=== PATIENT | male | born 1970 | race Caucasian/White ===

== ENCOUNTER 2016-12-29 11:38 | Emergency (ER) | payer BC ==
[2016-12-29] MEDS ORDERED: Ketorolac 60 MG/2 ML SDV IM ONE (12:05)
--- NOTE | 2016-12-29 12:18 | EDM.PDOC ---
ED HPI GENERAL MEDICAL PROBLEM - General Chief Complaint: Back Pain or Injury Stated Complaint: BACK PAIN Time Seen by Provider: 12/29/16 11:40 Source of Information: Reports: Patient History Limitations: Reports: No Limitations - History of Present Illness INITIAL COMMENTS - FREE TEXT/NARRATIVE: Presents reporting low back pain. The patient states that he has had low back pain for a number of years. He was worked up for it back in his home in [place]. 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 He tries to just work through the pain but of late he cannot sleep at night or get comfortable due to the constant aching. He denies any radicular symptoms including electric burning pains or tingling or numbness in his buttocks and thighs legs or feet. He denies fever or bowel or bladder problems. 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 He states he is closely followed by his primary provider back in [place] as he must be seen at least every 6 months for his testosterone prescriptions. Lower Back Pain Score (Numeric/FACES): 8 - Related Data Allergies Allergy/AdvReac Type Severity Reaction Status Date / Time No Known Allergies Allergy Verified 12/29/16 11:57 Home Meds: Home Meds Carisoprodol [Soma] 350 mg PO BEDTIME PRN #14 tablet 12/29/16 [Rx] Testosterone Undecanoate [Aveed] 12/29/16 [History] predniSONE [Prednisone] 2 tab PO DAILY #10 tablet 12/29/16 [Rx] Past Medical History Musculoskeletal History: Reports: Back Pain, Chronic Oncologic (Cancer) History: Reports: Other (See Below) Other Oncologic History: testicular - Infectious Disease History Infectious Disease History: Reports: Chicken Pox - Past Surgical History Male Surgical History: Reports: Other (See Below) Other Male Surgeries/Procedures: orchectomy bilateral Social & Family History - Family History Family Medical History: Noncontributory - Tobacco Use Smoking Status *Q: Current Every Day Smoker Years of Tobacco use: 20 Packs/Tins Daily: 0.2 - Recreational Drug Use Recreational Drug Use: No ED ROS GENERAL - Review of Systems Review Of Systems: See Below ED EXAM,LOWER BACK PAIN/INJURY - Physical Exam Exam: See Below Exam Limited By: No Limitations General Appearance: Alert, No Apparent Distress Ears: Normal External Exam Nose: Normal Inspection Throat/Mouth: Normal Inspection Head: Atraumatic, Normocephalic Neck: Normal Inspection Respiratory/Chest: No Respiratory Distress, Lungs Clear, Normal Breath Sounds Cardiovascular: Normal Peripheral Pulses, Regular Rate, Rhythm, No Murmur GI/Abdominal: Soft Back Exam: Normal Inspection, Full Range of Motion. No: CVA Tenderness (L), CVA Tenderness (R), Paraspinal Tenderness, Vertebral Tenderness Extremities: Normal Inspection, Normal Range of Motion Neurological: Alert DTR - Lower Extremities: 2+: Knee (L), 3+: Knee (R) Psychiatric: Normal Affect, Normal Mood Skin Exam: Warm, Dry, Intact, Normal Color, No Rash Lymphatic: No Adenopathy Course - Vital Signs Last Recorded V/S: Last Vital Signs Temp 36.2 C 12/29/16 11:54 Pulse 91 12/29/16 11:54 Resp 18 12/29/16 11:54 BP 122/74 12/29/16 11:54 Pulse Ox 98 12/29/16 11:54 - Orders/Labs/Meds Meds: Medications Discontinued Medications Generic Name Dose Route Start Last Admin Trade Name Alba PRN Reason Stop Dose Admin Ketorolac Tromethamine 60 mg 12/29/16 12:05 12/29/16 12:15 Toradol IM 12/29/16 12:06 60 mg ONETIME ONE Administration Departure - Departure Time of Disposition: 12:45 Disposition: Home, Self-Care 01 Condition: Good Clinical Impression: Lumbar arthropathy - Discharge Information Instructions: Chronic Back Pain Referrals: PCP,None [Primary Care Provider] - Forms: ED Department Discharge Additional Instructions: 1. May take Soma or [place] before bed for low back pain and relaxation. Do NOT take these medications while working 2. Prednisone daily for the next 5 days 3. Consider massage or managed care specialist 4. Warm or cool packs, whichever feels best, 20 minutes every 3-4 hours to low back as needed 5. Please follow up with your primary provider--you have a history of cancer. Back pain may be a warning sign of recurrence.
== END 2016-12-29 13:00 | disposition home or self-care (01) ==
LOC: MW.ED 11:38
DX: M46.96 Unspecified inflammatory spondylopathy, lumbar region (principal); F17.210 Nicotine dependence, cigarettes, uncomplicated; Z79.899 Other long term (current) drug therapy
CPT/HCPCS: 96372; 99283; J1885; 99282

== ENCOUNTER 2017-09-04 15:55 | Emergency (ER) | payer SELFPAY ==
[2017-09-04] MEDS ORDERED: Sodium Chloride 0.9% 2.5 ML Syringe FLUSH PRN (16:08)
[2017-09-04] MEDS ORDERED: Sodium Chloride 0.9% 10 ML Syringe FLUSH PRN (16:08)
[2017-09-04] MEDS ORDERED: Aspirin 81 MG Tab.Chew PO ONE (16:08)
[2017-09-04] MEDS ORDERED: Nitroglycerin 0.4 MG Tab.SL ONE (16:15)
[2017-09-04] MEDS: Nitroglycerin 0.4 MG Tab.SL SL PRN ×3 (16:20→16:30)
[2017-09-04] MEDS ORDERED: Ketorolac 30 MG/ML SDV IVPUSH ONE (16:26)
--- NOTE | 2017-09-04 16:26 | EDM.PDOC ---
ED HPI GENERAL MEDICAL PROBLEM - General Chief Complaint: Chest Pain Stated Complaint: CHEST AND BACK PAIN Time Seen by Provider: 09/04/17 16:04 Source of Information: Reports: Patient History Limitations: Reports: No Limitations - History of Present Illness INITIAL COMMENTS - FREE TEXT/NARRATIVE: History of present illness: []Patient developed epigastric and sternal chest pain about 45 minutes ago patient while he will was driving to the hospital to be evaluated for back pain. Patient states his pain is 8/10 substernal, nonradiating, pressure with no other symptoms and denies any vomiting or bloody stools. He has been taking a lot of ibuprofen for his back. Patient is a testicular cancer survivor 2 to 5 years apart. Review of systems: As per history of present illness and below otherwise all systems reviewed and negative. Past medical history: As per history of present illness and as reviewed below otherwise noncontributory. Surgical history: As per history of present illness and as reviewed below otherwise noncontributory. Social history: No reported history of drug or alcohol abuse. Family history: As per history of present illness and as reviewed below otherwise noncontributory. Physical exam: General: Well developed, well nourished anxious HEENT: Atraumatic, normocephalic, pupils reactive, negative for conjunctival pallor or scleral icterus, mucous membranes moist, throat clear, neck supple, nontender, trachea midline. Lungs: Clear to auscultation, breath sounds equal bilaterally, chest nontender. Heart: S1S2, regular, negative for clicks, rubs, or JVD. Abdomen: Soft, nondistended, nontender. Negative for masses or hepatosplenomegaly. Negative for costovertebral tenderness. Positive back spasm left thoracolumbar spinal muscles Pelvis: Stable nontender. Genitourinary: Deferred. Rectal: Deferred. Extremities: Atraumatic, negative for cords or calf pain. Neurovascular unremarkable. Neuro: Awake, alert, oriented. Cranial nerves II through XII unremarkable. Cerebellum unremarkable. Motor and sensory unremarkable throughout. Exam nonfocal. Diagnostics: []EKG normal sinus rhythm 88 and without ischemic changes, CBC normal, chemistry normal, troponin, chest x-ray negative Therapeutics: []Aspirin, nitroglycerin without relief, GI cocktail alleviated symptoms Impression: []Gastritis secondary to NSAIDs Plan: []Stop NSAID use, tramadol and Flexeril follow up with primary care next available appointment. Take Prilosec twice a day for the next 2 weeks. Definitive disposition and diagnosis as appropriate pending reevaluation and review of above. - Related Data Allergies Allergy/AdvReac Type Severity Reaction Status Date / Time No Known Allergies Allergy Verified 12/29/16 11:57 Home Meds: Home Meds Carisoprodol [Soma] 350 mg PO BEDTIME PRN #14 tablet 12/29/16 [Rx] Testosterone Undecanoate [Aveed] 12/29/16 [History] predniSONE [Prednisone] 2 tab PO DAILY #10 tablet 12/29/16 [Rx] Cyclobenzaprine [Flexeril] 10 mg PO BID PRN #12 tab 09/04/17 [Rx] traMADol HCl [Tramadol HCl] 50 mg PO Q6H PRN #16 tablet 09/04/17 [Rx] Past Medical History Musculoskeletal History: Reports: Back Pain, Chronic Oncologic (Cancer) History: Reports: Other (See Below) Other Oncologic History: testicular - Infectious Disease History Infectious Disease History: Reports: Chicken Pox - Past Surgical History Male Surgical History: Reports: Other (See Below) Other Male Surgeries/Procedures: orchectomy bilateral Social & Family History - Family History Family Medical History: Noncontributory ED ROS GENERAL - Review of Systems Review Of Systems: See Below (History of present illness) ED EXAM, GENERAL - Physical Exam Exam: See Below (See history of present illness) Course - Vital Signs Last Recorded V/S: Last Vital Signs Temp Pulse 84 09/04/17 16:35 Resp 18 09/04/17 16:35 BP 103/70 09/04/17 16:35 Pulse Ox 94 L 09/04/17 16:35 - Orders/Labs/Meds Orders: Active Orders 24 hr Category Date Time Status Cardiac Monitoring [RC] . DIRECTED Care 09/04/17 16:08 Active EKG Documentation Completion [RC] STAT Care 09/04/17 16:08 Active Chest 1V Frontal [CR] Stat Exams 09/04/17 16:08 Taken UA W/MICROSCOPIC [URIN] Stat Lab 09/04/17 16:17 Ordered Sodium Chloride 0.9% [Normal Saline] 1,000 ml Med 09/04/17 17:17 Active IV .Bolus Sodium Chloride 0.9% [Normal Saline] 1,000 ml Med 09/04/17 16:30 Active IV ASDIRECTED Sodium Chloride 0.9% [Saline Flush] Med 09/04/17 16:08 Active 10 ml FLUSH ASDIRECTED PRN Sodium Chloride 0.9% [Saline Flush] Med 09/04/17 16:08 Active 2.5 ml FLUSH ASDIRECTED PRN Saline Lock Insert [OM.PC] Stat Oth 09/04/17 16:08 Ordered Medication Orders Sodium Chloride (Normal Saline) 1,000 mls @ 999 mls/hr IV ASDIRECTED ANASTACIO Sodium Chloride (Normal Saline) 1,000 mls @ 999 mls/hr IV .Bolus ONE Stop: 09/04/17 18:17 Sodium Chloride (Saline Flush) 10 ml FLUSH ASDIRECTED PRN PRN Reason: Keep Vein Open Sodium Chloride (Saline Flush) 2.5 ml FLUSH ASDIRECTED PRN PRN Reason: Keep Vein Open Labs: Laboratory Tests 09/04/17 09/04/17 Range/Units 16:10 16:10 WBC 7.08 (4.0-11.0) K/uL RBC 4.62 (4.50-5.90) M/uL Hgb 14.7 (13.0-17.0) g/dL Hct 42.8 (38.0-50.0) % MCV 92.6 (80.0-98.0) fL MCH 31.8 (27.0-32.0) pg MCHC 34.3 (31.0-37.0) g/dL RDW Std Deviation 45.9 (28.0-62.0) fl RDW Coeff of Avi 14 (11.0-15.0) % Plt Count 285 (150-400) K/uL MPV 9.30 (7.40-12.00) fL Neut % (Auto) 54.6 (48.0-80.0) % Lymph % (Auto) 35.3 (16.0-40.0) % Rich % (Auto) 7.9 (0.0-15.0) % Eos % (Auto) 1.6 (0.0-7.0) % Baso % (Auto) 0.6 (0.0-1.5) % Neut # (Auto) 3.9 (1.4-5.7) K/uL Lymph # (Auto) 2.5 H (0.6-2.4) K/uL Rich # (Auto) 0.6 (0.0-0.8) K/uL Eos # (Auto) 0.1 (0.0-0.7) K/uL Baso # (Auto) 0.0 (0.0-0.1) K/uL Nucleated RBC % 0.0 /100WBC Nucleated RBCs # 0 K/uL Sodium 143 (136-148) mmol/L Potassium 4.0 (3.5-5.1) mmol/L Chloride 105 (98-107) mmol/L Carbon Dioxide 28.2 (21.0-32.0) mmol/L BUN 16 (7.0-18.0) mg/dL Creatinine 1.1 (0.8-1.3) mg/dL Est Cr Clr Drug Dosing TNP Estimated GFR (MDRD) > 60.0 ml/min Glucose 97 (74-106) mg/dL Calcium 8.8 (8.5-10.1) mg/dL Total Bilirubin 0.3 (0.2-1.0) mg/dL AST 22 (15-37) IU/L ALT 29 (14-63) IU/L Alkaline Phosphatase 106 (46-116) U/L Troponin I < 0.050 (0.000-0.056) ng/mL Total Protein 7.1 (6.4-8.2) g/dL Albumin 4.1 (3.4-5.0) g/dL Globulin 3.0 (2.0-3.5) g/dL Albumin/Globulin Ratio 1.4 (1.3-2.8) Meds: Medications Generic Name Dose Route Start Last Admin Trade Name Freq PRN Reason Stop Dose Admin Sodium Chloride 1,000 mls @ 999 mls/hr 09/04/17 16:30 Normal Saline IV ASDIRECTED ANASTACIO Sodium Chloride 1,000 mls @ 999 mls/hr 09/04/17 17:17 Normal Saline IV 09/04/17 18:17 .Bolus ONE Sodium Chloride 10 ml 09/04/17 16:08 Saline Flush FLUSH ASDIRECTED PRN Keep Vein Open Sodium Chloride 2.5 ml 09/04/17 16:08 Saline Flush FLUSH ASDIRECTED PRN Keep Vein Open Discontinued Medications Generic Name Dose Route Start Last Admin Trade Name Freq PRN Reason Stop Dose Admin Aspirin 324 mg 09/04/17 16:08 09/04/17 16:18 Aspirin PO 09/04/17 16:09 324 mg ONETIME ONE Administration Al Hydroxide/Mg Hydroxide 15 0 ml 09/04/17 17:13 09/04/17 17:20 ml/ Lidocaine HCl 5 ml PO 09/04/17 17:14 1 each ONETIME ONE Administration Sodium Chloride 1,000 mls @ 999 mls/hr 09/04/17 16:27 09/04/17 16:28 Normal Saline IV 09/04/17 17:27 999 mls/hr .Bolus ONE Administration Ketorolac Tromethamine 30 mg 09/04/17 16:26 09/04/17 16:34 Toradol IVPUSH 09/04/17 16:27 30 mg ONETIME ONE Administration Morphine Sulfate 2 mg 09/04/17 16:39 09/04/17 16:46 Morphine IVPUSH 09/04/17 16:40 2 mg ONETIME ONE Administration Nitroglycerin 0.4 mg 09/04/17 16:17 09/04/17 16:30 Nitrostat SL 0.4 mg Q5M PRN Administration Chest Pain Nitroglycerin Confirm 09/04/17 16:15 09/04/17 16:21 Nitrostat Administered 09/04/17 16:16 Not Given Dose 0.4 mg .ROUTE .STK-MED ONE Ondansetron HCl 4 mg 09/04/17 16:48 09/04/17 16:52 Zofran IVPUSH 09/04/17 16:49 4 mg ONETIME ONE Administration Departure - Departure Time of Disposition: 17:40 Disposition: Home, Self-Care 01 Condition: Good Clinical Impression: Gastritis Qualifiers: Gastritis type: unspecified gastritis Prescriptions: Cyclobenzaprine [Flexeril] 10 mg PO BID PRN #12 tab PRN Reason: Pain traMADol HCl [Tramadol HCl] 50 mg PO Q6H PRN #16 tablet PRN Reason: Pain Referrals: PCP,None [Primary Care Provider] - Forms: ED Department Discharge Additional Instructions: The following information is given to patients seen in the emergency department who are being discharged to home. This information is to outline your options for follow-up care. We provide all patients seen in our emergency department with a follow-up referral. The need for follow-up, as well as the timing and circumstances, are variable depending upon the specifics of your emergency department visit. If you don't have a primary care physician on staff, we will provide you with a referral. We always advise you to contact your personal physician following an emergency department visit to inform them of the circumstance of the visit and for follow-up with them and/or the need for any referrals to a consulting specialist. The emergency department will also refer you to a specialist when appropriate. This referral assures that you have the opportunity for follow-up care with a specialist. All of these measure are taken in an effort to provide you with optimal care, which includes your follow-up. Under all circumstances we always encourage you to contact your private physician who remains a resource for coordinating your care. When calling for follow-up care, please make the office aware that this follow-up is from your recent emergency room visit. If for any reason you are refused follow-up, please contact the [facility] Emergency Department at and asked to speak to the emergency department charge nurse. Take Prilosec twice a day for 2 weeks, use tramadol Flexeril for your back pain follow-up primary care request physical therapy return to ER if symptoms worsen or change. [facility] [address] [place] [id number] - My Orders Last 24 Hours: My Active Orders 09/04/17 16:08 Cardiac Monitoring [RC] . DIRECTED EKG Documentation Completion [RC] STAT Chest 1V Frontal [CR] Stat Sodium Chloride 0.9% [Saline Flush] 10 ml FLUSH ASDIRECTED PRN Sodium Chloride 0.9% [Saline Flush] 2.5 ml FLUSH ASDIRECTED PRN Saline Lock Insert [OM.PC] Stat 09/04/17 16:17 UA W/MICROSCOPIC [URIN] Stat 09/04/17 16:30 Sodium Chloride 0.9% [Normal Saline] 1,000 ml IV ASDIRECTED 09/04/17 17:17 Sodium Chloride 0.9% [Normal Saline] 1,000 ml IV .Bolus - Assessment/Plan Last 24 Hours: My Active Orders 09/04/17 16:08 Cardiac Monitoring [RC] . DIRECTED EKG Documentation Completion [RC] STAT Chest 1V Frontal [CR] Stat Sodium Chloride 0.9% [Saline Flush] 10 ml FLUSH ASDIRECTED PRN Sodium Chloride 0.9% [Saline Flush] 2.5 ml FLUSH ASDIRECTED PRN Saline Lock Insert [OM.PC] Stat 09/04/17 16:17 UA W/MICROSCOPIC [URIN] Stat 09/04/17 16:30 Sodium Chloride 0.9% [Normal Saline] 1,000 ml IV ASDIRECTED 09/04/17 17:17 Sodium Chloride 0.9% [Normal Saline] 1,000 ml IV .Bolus
[2017-09-04] MEDS ORDERED: Sodium Chloride 0.9% 1,000 ML IV ONE ×2 (16:27→17:17)
[2017-09-04] MEDS ORDERED: Sodium Chloride 0.9% 1,000 ML IV SCH (16:30)
[2017-09-04] MEDS ORDERED: Morphine 2 MG/ML Syringe IVPUSH ONE (16:39)
[2017-09-04 16:41] LABS: CHLORIDE,CL 105 mmol/L (98-107); SODIUM,NA 143 mmol/L (136-148)
[2017-09-04] MEDS ORDERED: Ondansetron 4 MG/2 ML SDV IVPUSH ONE (16:48)
[2017-09-04] MEDS ORDERED: Alum Hydrox/Mag Hydrox/Simeth 15 ML, Lidocaine 2% 5 ML PO ONE ×2 (17:13)
--- NOTE | 2017-09-06 18:07 | CR ---
EXAM DATE: 09/04/17 PATIENT'S AGE: 47 Patient: CURTIS RASHID Facility: [place], [place] Site . Site : [id number] Study: XRay Chest [id number] 5:04:05 PM Ordering Physician: Stefan Jameson Final Report: INDICATION: chest pain Single AP view Findings: The lungs are clear. Pulmonary vascularity, mediastinum and cardiac silhouette are within normal limits. No effusions and no pneumothorax. Osseous structures appear unremarkable. Impression: No evidence of acute cardiopulmonary disease. Dictated by: Gerardo Miller MD @ 09/04/2017 17:15:51 (Electronic Signature) Report Signed by Proxy. [id number]
== END 2017-09-04 17:54 | disposition home or self-care (01) ==
LOC: MW.ED 15:55
DX: K29.60 Other gastritis without bleeding (principal)
CPT/HCPCS: 36415; 71045; 80053; 84484; 85025; 93005; 96361; 96374; 96375; 99284; A9270; J1885; J2270; J2405; J7040

== ENCOUNTER 2017-10-16 08:42 | Emergency (ER) | payer SELFPAY ==
--- NOTE | 2017-10-16 09:06 | EDM.PDOC ---
ED HPI GENERAL MEDICAL PROBLEM - General Chief Complaint: Neck Problem Stated Complaint: NECK HURTS Time Seen by Provider: 10/16/17 08:44 Source of Information: Reports: Patient History Limitations: Reports: No Limitations - History of Present Illness INITIAL COMMENTS - FREE TEXT/NARRATIVE: History of present illness: []Patient developed right neck pain yesterday and went to [facility] where he had a CT scan, Lyme disease test, labs and was discharged with pain meds and muscle relaxants. Patient has had thoracic outlet syndrome and has had his right first rib removed Review of systems: As per history of present illness and below otherwise all systems reviewed and negative. Past medical history: As per history of present illness and as reviewed below otherwise noncontributory. Surgical history: As per history of present illness and as reviewed below otherwise noncontributory. Social history: No reported history of drug or alcohol abuse. Family history: As per history of present illness and as reviewed below otherwise noncontributory. Physical exam: General: Well developed, well nourished in NAD HEENT: Atraumatic, normocephalic, pupils reactive, negative for conjunctival pallor or scleral icterus, mucous membranes moist, throat clear, neck supple, focal tenderness of right sternocleidomastoid muscle, no bruits, no adenopathy or masses. No vertebral tenderness to palpation trachea midline. Lungs: Clear to auscultation, breath sounds equal bilaterally, chest nontender. Heart: S1S2, regular, negative for clicks, rubs, or JVD. Abdomen: Soft, nondistended, nontender. Negative for masses or hepatosplenomegaly. Negative for costovertebral tenderness. Pelvis: Stable nontender. Genitourinary: Deferred. Rectal: Deferred. Extremities: Atraumatic, negative for cords or calf pain. Neurovascular unremarkable. Neuro: Awake, alert, oriented. Cranial nerves II through XII unremarkable. Cerebellum unremarkable. Motor and sensory unremarkable throughout. Exam nonfocal. Skin:warm and dry Diagnostics: None Therapeutics: None ED Course: Unremarkable Impression: Right sternocleidomastoid mastoid muscle spasm Prescriptions: Patient has meds Plan: (Primary care Definitive disposition and diagnosis as appropriate pending reevaluation and review of above. Right neck Pain Score (Numeric/FACES): 8 - Related Data Allergies Allergy/AdvReac Type Severity Reaction Status Date / Time No Known Allergies Allergy Verified 10/16/17 08:54 Home Meds: Home Meds Testosterone Undecanoate [Aveed] 350 mg IM WEEKLY 12/29/16 [History] Cyclobenzaprine [Flexeril] 10 mg PO BID PRN #12 tab 09/04/17 [Rx] Past Medical History Musculoskeletal History: Reports: Back Pain, Chronic Oncologic (Cancer) History: Reports: Other (See Below) Other Oncologic History: testicular - Infectious Disease History Infectious Disease History: Reports: Chicken Pox - Past Surgical History Respiratory Surgical History: Reports: Other (See Below) Other Respiratory Surgeries/Procedures: Rib removed Male Surgical History: Reports: Other (See Below) Other Male Surgeries/Procedures: orchectomy bilateral Social & Family History - Family History Family Medical History: Noncontributory - Tobacco Use Smoking Status *Q: Current Every Day Smoker Years of Tobacco use: 20 Packs/Tins Daily: 0.1 - Caffeine Use Caffeine Use: Reports: Energy Drinks - Alcohol Use Days Per Week of Alcohol Use: 3 Number of Drinks Per Day: 3 Total Drinks Per Week: 9 - Recreational Drug Use Recreational Drug Use: No ED ROS GENERAL - Review of Systems Review Of Systems: ROS reveals no pertinent complaints other than HPI. ED EXAM, UPPER BACK/NECK PAIN - Physical Exam Exam: See Below (See history of present illness) Course - Vital Signs Last Recorded V/S: Last Vital Signs Temp 98.2 F 10/16/17 08:54 Pulse 87 10/16/17 08:54 Resp 16 10/16/17 08:54 BP 115/72 10/16/17 08:54 Pulse Ox 94 L 10/16/17 08:54 Departure - Departure Time of Disposition: 09:04 Disposition: Home, Self-Care 01 Condition: Good Clinical Impression: Muscle spasms of neck - Discharge Information Referrals: PCP,None [Primary Care Provider] - Additional Instructions: The following information is given to patients seen in the emergency department who are being discharged to home. This information is to outline your options for follow-up care. We provide all patients seen in our emergency department with a follow-up referral. The need for follow-up, as well as the timing and circumstances, are variable depending upon the specifics of your emergency department visit. If you don't have a primary care physician on staff, we will provide you with a referral. We always advise you to contact your personal physician following an emergency department visit to inform them of the circumstance of the visit and for follow-up with them and/or the need for any referrals to a consulting specialist. The emergency department will also refer you to a specialist when appropriate. This referral assures that you have the opportunity for follow-up care with a specialist. All of these measure are taken in an effort to provide you with optimal care, which includes your follow-up. Under all circumstances we always encourage you to contact your private physician who remains a resource for coordinating your care. When calling for follow-up care, please make the office aware that this follow-up is from your recent emergency room visit. If for any reason you are refused follow-up, please contact the [facility] Emergency Department at and asked to speak to the emergency department charge nurse. Follow-up with your primary care take the medicines you have as directed. Use ice and heat to neck.
== END 2017-10-16 09:10 | disposition home or self-care (01) ==
LOC: MW.ED 08:42
DX: M62.838 Other muscle spasm (principal); F17.210 Nicotine dependence, cigarettes, uncomplicated
CPT/HCPCS: 99282; 99283